=== PATIENT | male | born 1990 | race Caucasian/White ===

== ENCOUNTER 2018-02-11 19:49 | Emergency (ER) | payer OTHER ==
[2018-02-11] MEDS ORDERED: NS(*) 0.9% 1000 ML BAG 1,000 ML IV ONE (20:05)
[2018-02-11] MEDS ORDERED: KETOROLAC 30 MG/ML VIAL IVP ONE (20:05)
[2018-02-11] MEDS ORDERED: ONDANSETRON 4 MG/2 ML VIAL IVP ONE (20:05)
--- NOTE | 2018-02-11 20:05 | ER Report ---
History and Physical Time Seen By MD: 19:52 HPI/ROS CHIEF COMPLAINT: Sick, vomiting and diarrhea HISTORY OF PRESENT ILLNESS: 27-year-old male whose been sick since Leni eve with upper respiratory symptoms and a bad cough. He notes some fever and chills. Over the last 24 hours. She's developed vomiting and diarrhea. Mildly diaphoretic. He appears to be running a fever. Patient denies any significant past medical history. He denies travel or exposure to ill contacts. He is unsure if he ate bad food through the holidays. REVIEW OF SYSTEMS: Respiratory: As above Cardiovascular: No chest pain, no palpitations. Gastrointestinal: As above Musculoskeletal: No back pain. Allergies: Coded Allergies: Penicillins (Verified Allergy, Intermediate, "BLOW UP LIKE BALLOON", 02/11/18) Home Meds Active Scripts Ondansetron Hcl (ZOFRAN) 4 Mg Tablet, 4 MG PO Q6H PRN for NAUSEA/VOMITING, #10 Prov:DARVIN WANG DO 02/11/18 Ciprofloxacin Hcl 500 Mg Tab (CIPRO 500 MG TAB) 500 Mg Tablet, 500 MG PO BID for infection, #14 Prov:DARVIN WANG DO 02/11/18 Reviewed Nurses Notes: Yes Old Medical Records Reviewed: Yes Constitutional Vital Sign - Last 24 Hours 02/11/18 02/11/18 02/11/18 02/11/18 19:55 20:49 21:04 21:49 Temp 98.5 Pulse 101 99 Resp 14 B/P (MAP) 135/78 125/65 (85) Pulse Ox 91 93 92 O2 Delivery Room Air Physical Exam General Appearance: The patient is alert, has no immediate need for airway protection and no current signs of toxicity. Vital signs stable, afebrile, pulse ox normal, skin warm, diaphoretic, pink HEENT: Pupils equal and round no injection. TMs normal, oropharynx with mild erythema, no exudate Respiratory: Chest is non tender, lungs are clear to auscultation. Cardiac: regular rate and rhythm Gastrointestinal: Abdomen is soft and non tender, no masses, bowel sounds normal. Musculoskeletal: Neck: Neck is supple and non tender. No lymphadenopathy Extremities have full range of motion and are non tender. Skin: No rashes or lesions. DIFFERENTIAL DIAGNOSIS: After history and physical exam differential diagnosis was considered for abdominal pain including but not limited to appendicitis, cholecystitis, gastritis, gastritis, food poisoning, viral syndrome and urinary tract infection. Additionally, bronchitis, pneumonia, upper respiratory infection Medical Decision Making Data Points Result Diagram: 02/11/18200902/11/182009 Laboratory Hematology Test 02/11/18 19:55 02/11/18 20:10 02/11/18 21:27 Stool Leukocytes, Qualitative Positive Clostridium Difficile Toxin A & B Negative Clostridium difficile Antigen Negative Red Blood Count 6.11 M/uL (4.00-5.60) Mean Corpuscular Volume 84.0 fL (80.0-96.0) Mean Corpuscular Hemoglobin 29.1 pg (26.0-33.0) Mean Corpuscular Hemoglobin Concent 34.7 g/dL (32.0-36.0) Red Cell Distribution Width 13.0 % (11.5-14.5) Mean Platelet Volume 7.9 fL (7.2-11.1) Neutrophils (%) (Auto) 87.3 % (39.4-72.5) Lymphocytes (%) (Auto) 7.4 % (17.6-49.6) Monocytes (%) (Auto) 4.8 % (4.1-12.4) Eosinophils (%) (Auto) 0.0 % (0.4-6.7) Basophils (%) (Auto) 0.5 % (0.3-1.4) Nucleated RBC Relative Count (auto) 0.7 /100WBC Neutrophils # (Auto) 11.9 K/uL (2.0-7.4) Lymphocytes # (Auto) 1.0 K/uL (1.3-3.6) Monocytes # (Auto) 0.6 K/uL (0.3-1.0) Eosinophils # (Auto) 0.0 K/uL (0.0-0.5) Basophils # (Auto) 0.1 K/uL (0.0-0.1) Nucleated RBC Absolute Count (auto) 0.10 K/uL Sodium Level 135 mmol/L (137-145) Potassium Level 3.9 mmol/L (3.5-5.0) Chloride Level 97 mmol/L (98-107) Carbon Dioxide Level 24 mmol/L (22-30) Blood Urea Nitrogen 14 mg/dl (9-21) Creatinine 1.10 mg/dl (0.66-1.25) Glomerular Filtration Rate Calc > 60.0 Random Glucose 112 mg/dl (75-110) Lactate 1.7 mmol/L (0.7-2.1) Calcium Level 9.6 mg/dl (8.4-10.2) Total Bilirubin 0.8 mg/dl (0.2-1.3) Aspartate Amino Transf (AST/SGOT) 27 U/L (0-35) Alanine Aminotransferase (ALT/SGPT) 43 U/L (0-56) Alkaline Phosphatase 72 U/L (0-126) Total Protein 8.3 g/dl (6.3-8.2) Albumin 4.6 g/dl (3.5-5.0) Amylase Level 59 U/L (0-110) Lipase 59 U/L (23-300) Urine Color Yellow Urine Clarity Clear Urine pH 5.0 pH (4.8-9.5) Urine Specific [place] 1.029 Urine Protein 30 mg/dL (NEGATIVE) Urine Glucose (UA) Negative mg/dL (NEGATIVE) Urine Ketones Negative mg/dL (NEGATIVE) Urine Blood Negative (NEGATIVE) Urine Nitrite Negative (NEGATIVE) Urine Bilirubin Negative (NEGATIVE) Urine Urobilinogen Negative mg/dL (0.2-1.9) Urine Leukocyte Esterase Negative (NEGATIVE) Urine RBC <1 /HPF (0-2/HPF) Urine WBC 3 /HPF (0-5/HPF) Urine Squamous Epithelial Cells None /LPF (</=FEW) Urine Bacteria Negative /HPF (NONE-FEW) Urine Mucus Few /HPF (NONE-FEW) Chemistry Test 02/11/18 19:55 02/11/18 20:10 02/11/18 21:27 Stool Leukocytes, Qualitative Positive Clostridium Difficile Toxin A & B Negative Clostridium difficile Antigen Negative White Blood Count 13.6 k/uL (4.5-11.0) Red Blood Count 6.11 M/uL (4.00-5.60) Hemoglobin 17.8 g/dL (14.0-18.0) Hematocrit 51.3 % (42.0-52.0) Mean Corpuscular Volume 84.0 fL (80.0-96.0) Mean Corpuscular Hemoglobin 29.1 pg (26.0-33.0) Mean Corpuscular Hemoglobin Concent 34.7 g/dL (32.0-36.0) Red Cell Distribution Width 13.0 % (11.5-14.5) Platelet Count 290 K/uL (150-450) Mean Platelet Volume 7.9 fL (7.2-11.1) Neutrophils (%) (Auto) 87.3 % (39.4-72.5) Lymphocytes (%) (Auto) 7.4 % (17.6-49.6) Monocytes (%) (Auto) 4.8 % (4.1-12.4) Eosinophils (%) (Auto) 0.0 % (0.4-6.7) Basophils (%) (Auto) 0.5 % (0.3-1.4) Nucleated RBC Relative Count (auto) 0.7 /100WBC Neutrophils # (Auto) 11.9 K/uL (2.0-7.4) Lymphocytes # (Auto) 1.0 K/uL (1.3-3.6) Monocytes # (Auto) 0.6 K/uL (0.3-1.0) Eosinophils # (Auto) 0.0 K/uL (0.0-0.5) Basophils # (Auto) 0.1 K/uL (0.0-0.1) Nucleated RBC Absolute Count (auto) 0.10 K/uL Glomerular Filtration Rate Calc > 60.0 Lactate 1.7 mmol/L (0.7-2.1) Calcium Level 9.6 mg/dl (8.4-10.2) Total Bilirubin 0.8 mg/dl (0.2-1.3) Aspartate Amino Transf (AST/SGOT) 27 U/L (0-35) Alanine Aminotransferase (ALT/SGPT) 43 U/L (0-56) Alkaline Phosphatase 72 U/L (0-126) Total Protein 8.3 g/dl (6.3-8.2) Albumin 4.6 g/dl (3.5-5.0) Amylase Level 59 U/L (0-110) Lipase 59 U/L (23-300) Urine Color Yellow Urine Clarity Clear Urine pH 5.0 pH (4.8-9.5) Urine Specific [place] 1.029 Urine Protein 30 mg/dL (NEGATIVE) Urine Glucose (UA) Negative mg/dL (NEGATIVE) Urine Ketones Negative mg/dL (NEGATIVE) Urine Blood Negative (NEGATIVE) Urine Nitrite Negative (NEGATIVE) Urine Bilirubin Negative (NEGATIVE) Urine Urobilinogen Negative mg/dL (0.2-1.9) Urine Leukocyte Esterase Negative (NEGATIVE) Urine RBC <1 /HPF (0-2/HPF) Urine WBC 3 /HPF (0-5/HPF) Urine Squamous Epithelial Cells None /LPF (</=FEW) Urine Bacteria Negative /HPF (NONE-FEW) Urine Mucus Few /HPF (NONE-FEW) Urinalysis Test 02/11/18 21:27 Urine Color Yellow Urine Clarity Clear Urine pH 5.0 pH (4.8-9.5) Urine Specific [place] 1.029 Urine Protein 30 mg/dL (NEGATIVE) Urine Glucose (UA) Negative mg/dL (NEGATIVE) Urine Ketones Negative mg/dL (NEGATIVE) Urine Blood Negative (NEGATIVE) Urine Nitrite Negative (NEGATIVE) Urine Bilirubin Negative (NEGATIVE) Urine Urobilinogen Negative mg/dL (0.2-1.9) Urine Leukocyte Esterase Negative (NEGATIVE) Urine RBC <1 /HPF (0-2/HPF) Urine WBC 3 /HPF (0-5/HPF) Urine Squamous Epithelial Cells None /LPF (</=FEW) Urine Bacteria Negative /HPF (NONE-FEW) Urine Mucus Few /HPF (NONE-FEW) Microbiology Microbiology Date/Time Source Procedure Growth Status 02/11/18 19:55 Stool Gram Stain - Final Resulted 02/11/18 19:55 Stool Stool Culture - Preliminary NORMAL SO FAR, CULTURE SET UP LATE, C... Resulted EKG/Imaging Imaging X-ray: Two-view chest x-ray was obtained. I viewed the images myself on the PACS system. My interpretation of the images is: No infiltrate, no effusion, normal mediastinum. The radiologist interpretation had no clinically significant variation from this interpretation. ED Course/Re-evaluation Clinical Indication for ER IV: Hydration, IV Access ED Course Patient was admitted to an examination room. H&P was done. The differential diagnosis was considered. Patient with diarrhea. He's had fever. She also had upper respiratory infection for several weeks. Patient's treated with IV fluid, Zofran, fentanyl. Diagnostic studies show white blood cells in the stools,, C. difficile is negative. Patient's white blood cell counts elevated at 13,000. He'll be treated with Cipro 500 mg by mouth twice a day for infectious diarrhea. He is given Zofran for nausea control. He is advised a clear liquid diet for 48 hours. Decision to Disposition Date: Feb 11, 2018 Decision to Disposition Time: 21:29 Depart Departure Latest Vital Signs Vital Signs Date Time Temp Pulse Resp B/P (MAP) Pulse Ox O2 Delivery O2 Flow Rate FiO2 02/11/18 21:49 125/65 (85) 02/11/18 21:04 92 02/11/18 20:49 99 02/11/18 19:55 98.5 14 Room Air Impression: Primary Impression: Gastroenteritis Additional Impression: Upper respiratory infection Condition: Improved Disposition: HOME OR SELF-CARE Referrals: KVNG CABAN MD, FARRUKH MD New Scripts Ondansetron Hcl (ZOFRAN) 4 Mg Tablet 4 MG PO Q6H PRN for NAUSEA/VOMITING, #10 Prov: DARVIN WANG DO 02/11/18 Ciprofloxacin Hcl 500 Mg Tab (CIPRO 500 MG TAB) 500 Mg Tablet 500 MG PO BID for infection, #14 Prov: DARVIN WANG DO 02/11/18 Patient Instructions: Acute Diarrhea (ED), Upper Respiratory Infection (ED) Additional Instructions: Follow clear liquid diet for 48 hours and advance to the brat diet, bananas, rice, applesauce and toast Use ibuprofen and Tylenol as needed for pain relief. Follow-up with primary care if unimproved in 3-5 days Return to the ER for any worsening Problem Qualifiers Additional Impression: Upper respiratory infection URI type: unspecified URI Qualified Codes: J06.9 - Acute upper respiratory infection, unspecified DARVIN WANG DO Feb 11, 2018 20:05
[2018-02-11 20:22] LABS: PLATELET COUNT, AUTOMATED 290 K/uL (150-450)
--- NOTE | 2018-02-11 20:59 | RADIOLOGY IMAGING REPORT ---
FACILITY: [facility] [place]IENT NAME: Remy aKng : 1990 MR: [id number] V: [id number] EXAM DATE: ORDERING PHYSICIAN: DARVIN WANG TECHNOLOGIST: Location: [facility] Patient: Remy Kang : 1990 Visit/Account:[id number] Date of Sevice: 02/11/2018 2 VIEWS CHEST INDICATION: Cough for 10 days. COMPARISON: None available FINDINGS: Cardiomediastinal silhouette and pulmonary vessels within normal limits. Lung volumes are decreased bilaterally. No focal areas of consolidation. There is no pneumothorax or pleural effusion. No nodule. Upper abdomen is unremarkable. No acute bony abnormality. IMPRESSION: 1. Low lung volumes without indication of acute cardiopulmonary disease. Report Dictated By: Manuel Pandey at 02/11/2018 8:52 PM Report E-Signed By: Manuel Pandey at 02/11/2018 8:55 PM WSN:[id number]
[2018-02-11] MEDS ORDERED: ONDA4TAB97 PO (21:31)
[2018-02-11] MEDS ORDERED: CIPR-344 PO (21:31)
[2018-02-11] MEDS ORDERED: CIPROFLOXACIN 500 MG TAB PO ONE (21:35)
[2018-02-11] MEDS ORDERED: ONDANSETRON 4 MG ODT TH SL ONE (21:35)
[2018-02-11 21:49] VITALS: BP 125/65
== END 2018-02-11 21:43 | disposition home or self-care (01) ==
LOC: ER 20:17
DX: K52.9 Noninfective gastroenteritis and colitis, unspecified (principal); J06.9 Acute upper respiratory infection, unspecified
CPT/HCPCS: 71046; 81001; 82150; 83605; 83630; 83690; 85025; 87045; 87205; 87324; 87449; 96361; 96374; 96375; 99284; J1885; J2405; J7030; S0119; 82040; 82247; 82310; 82374; 82435; 82565; 82947; 84075; 84132; 84155; 84295; 84450; 84460; 84520